=== PATIENT | male | born 1985 | race Caucasian/White ===

== ENCOUNTER 2017-07-27 12:48 | Emergency (ER) | payer SELFPAY ==
[2017-07-27] MEDS ORDERED: DEXAMETHASONE 10 MG/ML VIAL IVP ONE (13:29)
[2017-07-27] MEDS ORDERED: METOCLOPRAMIDE 10 MG/2 ML VIAL IVP ONE (13:29)
[2017-07-27] MEDS ORDERED: KETOROLAC 30 MG/1 ML SDV IVP ONE (13:29)
--- NOTE | 2017-07-27 13:31 | EDPHY ---
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 It is primarily in his left parietal region. It does not migrate. He has not had any vision or hearing changes. No sinus congestion. No fevers. No trauma. He is concerned about an aneurysm. He states that it hurts when he wakes up in the morning and then tends to wax and went on its own. No difficulty with balance. No focal weakness. He feels generally run down. REVIEW OF SYSTEMS: Constitutional: denies: chills, fever, recent illness, recent injury EENTM: denies: blurred vision, double vision, nose congestion Respiratory: denies: cough, shortness of breath Cardiac: denies: chest pain, irregular heart rate, lightheadedness, palpitations Gastrointestinal/Abdominal: denies: abdominal pain, diarrhea, nausea, vomiting, blood streaked stools Genitourinary: denies: dysuria, frequency, hematuria, pain Musculoskeletal: denies: joint pain, muscle pain Skin: denies: lesions, rash, jaundice, bruising Neurological: See HPI denies: numbness, paresthesia, tingling, dizziness Hematologic/Lymphatic: denies: blood clots, easy bleeding, easy bruising Immunologic/allergic: denies: HIV/AIDS, transplant EXAM: GENERAL: Well-appearing, well-nourished and in no acute distress. HEAD: Atraumatic, normocephalic. EYES: Pupils equal round and reactive to light, extraocular movements intact, sclera anicteric, conjunctiva are normal. ENT: TMs normal, nares patent, oropharynx clear without exudates. Moist mucous membranes. NECK: Normal range of motion, supple without lymphadenopathy or JVD. LUNGS: Breath sounds clear to auscultation bilaterally and equal. No wheezes rales or rhonchi. HEART: Regular rate and rhythm without murmurs, rubs or gallops. ABDOMEN: Soft, nontender, normoactive bowel sounds. No guarding, no rebound. No masses appreciated. BACK: No CVA tenderness, no spinal tenderness, step-offs or deformities EXTREMITIES: Normal range of motion, no pitting or edema. No clubbing or cyanosis. NEUROLOGICAL: Cranial nerves II through XII grossly intact. Normal speech, normal gait. 5/5 strength, normal movement in all extremities, normal sensation PSYCH: Normal mood, normal affect. SKIN: Warm, dry, normal turgor, no visible rashes or lesions. Source: Patient Exam Limitations: No limitations - Personal History Current Tetanus/Diphtheria Vaccine: Yes Current Tetanus Diphtheria and Acellular Pertussis (TDAP): Yes - Medical/Surgical History Hx Asthma: No Hx Chronic Respiratory Disease: No Hx Diabetes: No Hx Cardiac Disease: No Hx Renal Disease: No Hx Cirrhosis: No Hx Alcoholism: No Hx HIV/AIDS: No Hx Splenectomy or Spleen Trauma: No Other PMH: none per pt - Family History Significant Family History: No pertinent family hx - Social History Smoking Status: Heavy smoker Alcohol Use: Sober Drug Use: None Constitutional: Initial Vital Signs Temperature (C) 36.8 C 07/27/17 12:55 Heart Rate 67 07/27/17 12:55 Respiratory Rate 16 07/27/17 12:55 Blood Pressure 160/107 H 07/27/17 12:55 O2 Sat (%) 95 07/27/17 12:55 O2 Delivery Mode Room Air Allergies/Adverse Reactions: No Known Allergies Allergy (Unverified 07/27/17 12:54) Home Medications: Medication Instructions Recorded NK [No Known Home Meds] 07/27/17 Medical Decision Making - Diagnostics Imaging: Discussed imaging studies w/ call center dispatcher Radiologist ED Course/Re-evaluation: Patient has an unerupted molar that is likely the source of his headache. I will refer him to dental aid. I have left a message with their call service. Differential Diagnosis: Partial list of the Differential diagnosis considered include but were not limited to; tooth impaction, sinus infection, tumor and although unlikely based on the history and physical exam, I also considered aneurysm, meningitis. I discussed these differential diagnoses and the plan with the patient as well as the usual and expected course. The patient understands that the diagnosis is provisional and that in medicine we are not always correct and that further workup is often warranted. Usual and customary warnings were given. All of the patient's questions were answered. The patient was instructed to return to the emergency department should the symptoms at all worsen or return, otherwise to followup with the physician as we discussed. - Data Points Laboratory Results: Laboratory Results 07/27/17 13:37 07/27/17 13:37 Medications Given: Discontinued Medications Dexamethasone (Decadron Injection) 10 mg IVP EDNOW ONE Stop: 07/27/17 13:30 Last Admin: 07/27/17 13:37 Dose: 10 mg Ketorolac Tromethamine (Toradol) 30 mg IVP EDNOW ONE Stop: 07/27/17 13:30 Last Admin: 07/27/17 13:37 Dose: 30 mg Metoclopramide HCl (Reglan Injection) 10 mg IVP EDNOW ONE Stop: 07/27/17 13:30 Last Admin: 07/27/17 13:37 Dose: 10 mg Departure - Departure Disposition: Home, Routine, Self-Care Clinical Impression: Pain, dental Condition: Good Instructions: Toothache (ED) Additional Instructions: Follow-up with dental aid. There phone number is [phone] Referrals: DR ALPHONSE [Other] - As per Instructions
[2017-07-27 13:46] LABS: PLATELET COUNT 445 10^3/uL (150-400)
[2017-07-27 14:52] VITALS: BP 145/90
== END 2017-07-27 14:57 | disposition home or self-care (01) ==
DX: K08.89 Other specified disorders of teeth and supporting structures (principal); F17.200 Nicotine dependence, unspecified, uncomplicated
CPT/HCPCS: 96374; J1100; J1885; J2765